=== PATIENT | male | born 1990 | race Caucasian/White ===

== ENCOUNTER 2023-06-10 15:28 | Emergency (ER) | payer MEDICAID, SELFPAY ==
[2023-06-10 15:29] VITALS: BP 131/78; PULSE 69; RESP 18; TEMP 37.1; O2SAT 95; BMI 24.4
--- NOTE | 2023-06-10 15:30 | ED_ITS ---
HPI - General Adult General Chief complaint: General Medical Stated complaint: Needs methadone dose Time Seen by Provider: 06/10/23 15:34 Source: patient Mode of arrival: ambulatory Limitations: no limitations History of Present Illness HPI narrative: 32 year old male with pmhx significant for opioid use disorder presents to the ED today requesting methadone dose after missing his dose this morning due to difficulty finding a ride. Admits to receiving 90 mg methadone from [facility] in [place]. States his last dose was either yesterday or the day before however is unsure. Reports chills and anxiety at present. No nausea, vomiting, diarrhea, chest pain, SOB. Denies recent ilicit drug use or etoh consumption. Denies SI/HI. Currently resides at a sober house. Related Data Allergies Allergy/AdvReac Type Severity Reaction Status Date / Time No Known Allergies Allergy Verified 06/10/23 15:34 Review of Systems Review of Systems: Constitutional: No fever, +chills, No fatigue, night sweats, weight changes ENT/Mouth: No ear pain, hearing loss, nasal congestion, sinus pain, rhinorrhea, sore throat Eyes: No eye pain, swelling, redness, vision changes, discharge Cardio: No chest pain, palpitations, ESPINOZA, orthopnea, peripheral edema Pulm: No SOB, cough, sputum, wheezing, dyspnea, hemoptysis GI: No nausea, vomiting, hematemesis, abdominal pain, diarrhea, constipation, hematochezia, melena : No irregular bleeding, dysuria, frequency, urgency, hesitancy, hematuria, flank pain, urinary flow changes, urinary incontinence or retention MSK: No back pain, neck pain, joint pain, myalgias Skin: No lesions, rashes Neuro: No weakness, numbness, paresthesias, LOC, dizziness, headache Psych: +anxiety All other systems reviewed and are negative. [facility] Past Medical History Attestation statement: The following information was validated with the patient. Source: old records reviewed and nursing notes reviewed Physical Exam ED Vital Signs: Vital Signs - 24 hr 06/10/23 15:29 Temperature 98.8 F Pulse Rate 69 Respiratory Rate 18 Blood Pressure 131/78 Pulse Oximetry 95 Oxygen Delivery Method Room Air BMI result Body Mass Index 24.4 Vital signs stable Const Other: + mildly tremulous General: cooperative, comfortable and no acute distress Nutritional Appearance: average body habitus Orientation/consciousness: patient oriented x3 Limitations: no limitations HENMT Head: Yes normal to inspection Eyes General: appearance normal, both eyes and all related structures Conjunctivae: conjunctivae normal Sclerae: sclerae normal Pupils: Equal, round and reactive pupils present Neck Neck: Yes normal visual inspection Resp Effort & Inspection: normal respiratory effort Auscultation: clear to auscultation bilaterally Cardio Rate: regular rate Rhythm: regular rhythm Skin General skin exam: no rashes or lesions noted Neuro General: patient oriented x3 and gait normal Cranial nerves: Yes Equal, round and reactive pupils present Gait exam (Neuro): Normal gait present Motor exam (neuro): no asterixis and Motor fasciculations not present Course Course Course Narrative: 601 -- RN Mary spoke with [facility] confirming methadone dose of 90 mg. Last dose was on the (2 days ago) at 1753. Plan for administration of methadone and discharge. Medications Administered Discontinued Medications Generic Name Dose Route Start Last Admin Trade Name Freq PRN Reason Stop Dose Admin Methadone HCl 90 mg 06/10/23 15:44 06/10/23 15:55 Methadone Hcl 20 Mg/2 Ml Oral.Conc PO 06/10/23 15:45 90 mg ONCE ONE Administration Medical Decision Making Medical Decision Making [facility] Narrative: 32 year old male with pmhx significant for opioid use disorder presents to the ED today requesting methadone dose after missing his dose this morning due to difficulty finding a ride. Vital signs are stable. Patient is nontoxic- appearing and in no acute distress. Mildly tremulous on exam. No focal neuro deficits. No asterixis or tongue fasiculations. Lungs CTA b/l. Skin warm, no rashes or lesions. Ambulating with steady gait. No concern for acute opioid withdrawal. Will plan for methadone dose confirmation and administration. Differential Diagnosis Differential Diagnoses: The differential diagnosis associated with the presentation includes as above. Admission/Observation not indicated. Independent Historian Clinical information obtained from an independent historian. History obtained from or confirmed by: Other ([facility]) Chronic Conditions Patient?s care impacted by: Other (opioid use disorder) Social Determinants Patient?s care significantly limited by Social Determinants of Health including: Other Social Determinant of Health Discharge Plan Discharge Clinical Impression: Methadone dependence Patient Disposition: Home, Self-Care Instructions: Methadone (By mouth) Additional Instructions: You were dosed with 90mg methadone in ED today. For future doses, make sure that you are arriving to your appointment at [facility] in [place] on time. Do not miss any doses. If you happen to miss a dose in the future, return to emergency department. In the case of an emergency call 911.
--- NOTE | 2023-06-10 15:49 | PC.NURSE ---
[facility] called and verified Methadone dose of 90mg last dosed on 06/08/23. Verification form faxed to pharm at this time to dose and d/c from triage
[2023-06-10] MEDS: methADONE HCl 20 MG/2 ML ORAL.CONC 90 MG PO (15:55)
--- NOTE | 2023-06-12 09:20 | HE.PHANOTE ---
re methadone verification last dose 90 mg given 06/08/23 @ N
== END 2023-06-10 16:02 | disposition home or self-care (01) ==
LOC: HO.ED 16:00
PROVIDERS: Emergency Provider Emergency Medicine
DX: F11.20 Opioid dependence, uncomplicated (principal); F41.9 Anxiety disorder, unspecified
CPT/HCPCS: 99282; 99283

== ENCOUNTER 2023-06-11 11:25 | Emergency (ER) | payer MEDICAID, SELFPAY ==
[2023-06-11 11:38] VITALS: BP 158/74; PULSE 61; RESP 18; TEMP 37; O2SAT 96; BMI 26.1
--- NOTE | 2023-06-11 11:42 | ED_ITS ---
HPI - General Adult General Chief complaint: General Medical Stated complaint: Methadone dose Time Seen by Provider: 06/11/23 11:40 Source: patient Mode of arrival: ambulatory Limitations: no limitations History of Present Illness HPI narrative: 32 yold male presents to the ED for his methadone dose of 90mg. Rylee states his clinic is closed for the weekend and they informed him to return to the ED. patient missed his Doctors appointment last week so he will have to follow up with his PCP this week at methadone clinic to contunie his methadone. Patient denies any physical complaints Related Data Allergies Allergy/AdvReac Type Severity Reaction Status Date / Time bee pollen [bee stings] Allergy Unknown Verified 06/11/23 11:41 Review of Systems Review of Systems: wants mehtaonde dose Yes all other systems are reviewed and are negative [facility] Social History Social History Advance Directives: No Physical Exam ED Vital Signs: Vital Signs - 24 hr 06/11/23 11:38 Temperature 98.6 F Pulse Rate 61 Respiratory Rate 18 Blood Pressure 158/74 H Pulse Oximetry 96 Oxygen Delivery Method Room Air BMI result Body Mass Index 26.1 Const General: cooperative, healthy appearing, comfortable, no acute distress, well developed, alert, awake and Physically active Orientation/consciousness: oriented to person, oriented to place, oriented to time and patient oriented x3 HENMT Head: Yes normal to inspection, Yes No palpable skull fracture present, Yes normocephalic and Yes atraumatic Eyes General: appearance normal, both eyes and all related structures Neck Neck: Yes normal visual inspection, Yes full ROM, Yes no lymphadenopathy, Yes no meningeal signs, Yes trachea midline, Yes supple, No anterior neck swelling and No tender Chest Chest palpation & inspection: normal inspection of the chest and normal palpation of entire chest wall Resp Effort & Inspection: normal respiratory effort and able to speak in complete sentences Auscultation: clear to auscultation bilaterally Cardio Jugular venous distension: no JVD Heart sounds: S1 normal heart sound present and S2 normal heart sound present GI Inspection: Yes normal to inspection Palpation (GI): Soft to palpation, not firm, nontender, no guarding and not rigid General: Yes no CVA tenderness Back/Spine/Pelvis Back: no CVA tenderness and No back tenderness Skin General skin exam: no rashes or lesions noted and elasticity normal Neuro General: oriented to person, oriented to place, oriented to time, patient oriented x3, gait normal, tone normal, moves all extremities, Normal light touch and pain sensation, no meningeal signs, no focal motor deficits, CN's II-XI intact bilaterally and normal sensation to monofilament Extrem General: Yes normal to inspection and Yes full ROM Psych Appearance: grossly normal, well kempt and not disheveled Course Course Course Narrative: RME: 32 yold male presents to the ED for mehtadone dose of 90mg. Patient's clinic is closed and has to follow up with [facility] PCP this week to continue. Patient was informed to come to the ED for methadone. patient will be given methadone 90mg today. patient given methaonde yesterday. Medications Administered Discontinued Medications Generic Name Dose Route Start Last Admin Trade Name Cesar PRN Reason Stop Dose Admin Methadone HCl 90 mg 06/11/23 11:44 06/11/23 11:50 Methadone Hcl 20 Mg/2 Ml Oral.Conc PO 06/11/23 11:45 90 mg ONCE ONE Administration Medical Decision Making Medical Decision Making [facility] Narrative: 32 yold male presents to ED for methadone. Patient's [facility] clinic closed today. Also patient missed appointment with his primary care provider so he will have to follow-up with his primary care provider this week to continue methadone. Patient was informed by [facility] to come to the ED to get his methadone dose. Differential Diagnosis Differential Diagnoses: The differential diagnosis associated with the presentation includes Discharge Plan Discharge Clinical Impression: Medication refill Patient Disposition: Home, Self-Care Instructions: Medicine Refill (ED) Additional Instructions: Recommend follow-up with primary care provider at methadone clinic. Return to the ED for any physical complaints or any other concerning symptoms. Interventions: ED Discharge Assessment Last Done: 06/11/23 11:58 Discharge Date/Time: 06/11/23 11:59 Print Language: Tristanian
[2023-06-11] MEDS: methADONE HCl 20 MG/2 ML ORAL.CONC 90 MG PO (11:50)
== END 2023-06-11 11:59 | disposition home or self-care (01) ==
PROVIDERS: Emergency Provider Emergency Medicine
DX: Z76.0 Encounter for issue of repeat prescription (principal)
CPT/HCPCS: 99282; 99283

== ENCOUNTER 2023-06-12 19:05 | Emergency (ER) | payer MEDICAID, SELFPAY ==
[2023-06-12 19:33] VITALS: BP 157/89; PULSE 81; RESP 16; TEMP 37; O2SAT 96; BMI 24.4
--- NOTE | 2023-06-12 19:33 | ED.GENADULT ---
HPI - General Adult General Chief complaint: General Medical Stated complaint: missed methadone dose today Time Seen by Provider: 06/12/23 19:35 Source: patient Mode of arrival: ambulatory Limitations: no limitations History of Present Illness HPI narrative: 32 year old male with pmhx significant for opiate use disorder on methadone presents to the emergency department today requesting methadone dose. He typically doses at [facility]. States that he has had issues getting his methadone dose after he missed a doctor's appointment last week. States that he will be following up with a new clinic tomorrow morning. Admits to missing his methadone dose today as he was trying to tough it out at home until tomorrow morning. He was [place] [facility] [place] the last 2 days with a dose of 90 mg. Denies ilicit substance use or etoh constumption. Denies any physical complaints. Related Data Home Medications Medication Instructions Recorded Confirmed methadone 10 mg/mL oral 90 mg PO DAILY 06/12/23 06/12/23 concentrate (Methadone Intensol) Allergies Allergy/AdvReac Type Severity Reaction Status Date / Time bee pollen [bee stings] Allergy Unknown Verified 06/12/23 19:33 Review of Systems Review of Systems: Constitutional: No fever, chills, fatigue, night sweats, weight changes ENT/Mouth: No ear pain, hearing loss, nasal congestion, sinus pain, rhinorrhea, sore throat Eyes: No eye pain, swelling, redness, vision changes, discharge Cardio: No chest pain, palpitations, ESPINOZA, orthopnea, peripheral edema Pulm: No SOB, cough, sputum, wheezing, dyspnea, hemoptysis GI: No nausea, vomiting, hematemesis, abdominal pain, diarrhea, constipation, hematochezia, melena : No irregular bleeding, dysuria, frequency, urgency, hesitancy, hematuria, flank pain, urinary flow changes, urinary incontinence or retention MSK: No back pain, neck pain, joint pain, myalgias Skin: No lesions, rashes Neuro: No weakness, numbness, paresthesias, LOC, dizziness, headache All other systems reviewed and are negative. [facility] Past Medical History Attestation statement: The following information was validated with the patient. Source: old records reviewed and nursing notes reviewed Social History Social History Advance Directives: No Advance Directives Information Provided: No Physical Exam ED Vital Signs: Vital Signs - 24 hr 06/12/23 19:33 Temperature 98.6 F Pulse Rate 81 Respiratory Rate 16 Blood Pressure 157/89 H Pulse Oximetry 96 Oxygen Delivery Method Room Air BMI result Body Mass Index 24.4 Vital signs notable for hypertension, otherwise WNL. Const General: cooperative, healthy appearing, comfortable and no acute distress Orientation/consciousness: patient oriented x3 Limitations: no limitations HENMT Head: Yes normal to inspection Eyes General: appearance normal, both eyes and all related structures Conjunctivae: conjunctivae normal Sclerae: sclerae normal Pupils: Equal, round and reactive pupils present Neck Neck: Yes normal visual inspection Resp Effort & Inspection: normal respiratory effort Auscultation: clear to auscultation bilaterally Cardio Rate: regular rate Rhythm: regular rhythm Skin General skin exam: no rashes or lesions noted Neuro General: patient oriented x3 and gait normal Cranial nerves: Yes Equal, round and reactive pupils present Course Course Course Narrative: Methadone dose of 90 mg confirmed. Patient will receive methadone dose in ED and be discharged. Medications Administered Discontinued Medications Generic Name Dose Route Start Last Admin Trade Name Cesar PRN Reason Stop Dose Admin Methadone HCl 90 mg 06/12/23 19:34 06/12/23 19:53 Methadone Hcl 20 Mg/2 Ml Oral.Conc PO 06/12/23 19:35 90 mg ONCE ONE Administration Medical Decision Making Medical Decision Making [facility] Narrative: 32 year old male with pmhx significant for opiate use disorder on methadone presents to the emergency department today requesting methadone dose. VSS. Patient is AOX3. Acting appropriately. Physical exam is unremarkable. Will plan for methadone dose and discharge. Differential Diagnosis Differential Diagnoses: The differential diagnosis associated with the presentation includes opioid use disorder, methadone dependence Admission/Observation not indicated. Prescription Management I considered prescription management with: Pain Medication Chronic Conditions Patient?s care impacted by: Other (opioid use disorder, methadone dependence ) Social Determinants Patient?s care significantly limited by Social Determinants of Health including: Other Social Determinant of Health Critical Care Time Critical Care Time Critical Care Time: No Discharge Plan Discharge Clinical Impression: Medicine refill, Methadone dependence Patient Disposition: Home, Self-Care Instructions: Methadone (By mouth), Medicine Refill (ED) Additional Instructions: You were dosed with 90 mg methadone in ED today. For future doses, make sure that you are arriving to your appointment at [facility] in [place] on time. If you are switching clinics, please make sure that you follow up with them tomorrow morning for your methadone. If you happen to miss a dose in the future, return to emergency department. In the case of an emergency call 911. Prescriptions: No Action methadone [Methadone Intensol] 10 mg/mL Concentrate 90 mg PO DAILY Interventions: ED Discharge Assessment Last Done: 06/12/23 19:57 Discharge Date/Time: 06/12/23 19:57
[2023-06-12] MEDS: methADONE HCl 20 MG/2 ML ORAL.CONC 90 MG PO (19:53)
== END 2023-06-12 19:57 | disposition home or self-care (01) ==
PROVIDERS: Emergency Provider Internal Medicine
DX: F11.20 Opioid dependence, uncomplicated (principal); Z76.0 Encounter for issue of repeat prescription
CPT/HCPCS: 99282; 99283

== ENCOUNTER 2024-10-18 19:04 | Emergency (ER) | payer MEDICAID, SELFPAY ==
[2024-10-18 19:21] VITALS: BP 139/78; PULSE 81; RESP 16; TEMP 36.6; O2SAT 94; BMI 22.7
--- NOTE | 2024-10-18 19:36 | ECG_ITS ---
Test Reason : MED CLEARANCE Blood Pressure : */* mmHG Vent. Rate : 83 BPM Atrial Rate : 83 BPM P-R Int : 128 ms QRS Dur : 90 ms QT Int : 416 ms P-R-T Axes : 42 39 17 degrees QTcB Int : 488 ms Normal sinus rhythm Prolonged QT Abnormal ECG No previous ECGs available Referred By: Daly Christianson Electronically Signed By: JOSHUA TORRES
--- NOTE | 2024-10-18 19:43 | PC.NURSE ---
Patient not found in [facility] or directly outside, called patient's phone, number disconnected. Called patient's contact Navya, patient currently in parking lot will return.
--- NOTE | 2024-10-18 19:58 | ED.MEDCLEAR ---
HPI - Medical Clearance General Chief complaint: Medical Clearance Stated complaint: wants an EKG Time Seen by Provider: 10/18/24 19:43 Source: patient and family Mode of arrival: ambulatory Limitations: no limitations History of Present Illness ED Provider: NEGIN ANDINO PA-C HPI Narrative: 33 year old male with pmhx significant for polysubstance abuse presents to the ED today requesting EKG for medical clearance. Patient reports speaking with [facility] who have a bed available for him. They requested he come to the ED for EKG as he is on methadone. Reports taking 150mg methadone daily. He is dosed at a clinic in [place]. He was last dosed this morning. He admits to injecting crack cocaine. Last injected today. Denies other illicit substance use. Denies etoh consumption. Denies any physical complaints at present. Denies SI/HI. He presents with his grandmother who will be driving him to the recovery center. Related Information Home Medications ?Medication ?Instructions ?Recorded ?Confirmed methadone 10 mg/mL oral 90 mg PO DAILY 06/12/23 06/12/23 concentrate (Methadone Intensol) Allergies Allergy/AdvReac Type Severity Reaction Status Date / Time bee pollen [bee stings] Allergy Unknown Verified 10/18/24 19:23 Review of Systems Review of Systems: Constitutional: No fever, chills, fatigue, night sweats, weight changes ENT/Mouth: No ear pain, hearing loss, nasal congestion, sinus pain, rhinorrhea, sore throat Eyes: No eye pain, swelling, redness, vision changes, discharge Cardio: No chest pain, palpitations, ESPINOZA, orthopnea, peripheral edema Pulm: No SOB, cough, sputum, wheezing, dyspnea, hemoptysis GI: No nausea, vomiting, hematemesis, abdominal pain, diarrhea, constipation, hematochezia, melena : No irregular bleeding, dysuria, frequency, urgency, hesitancy, hematuria, flank pain, urinary flow changes, urinary incontinence or retention MSK: No back pain, neck pain, joint pain, myalgias Skin: No lesions, rashes Neuro: No weakness, numbness, paresthesias, LOC, dizziness, headache Psych: No anxiety/panic, depression, SI/HI, AH/VH All other systems reviewed and are negative. [facility] Past Medical History Attestation statement: The following information was validated with the patient. Source: old records reviewed and nursing notes reviewed Social History Social History Advance Directives: No Advance Directives Information Provided: No Do you have a plan to hurt others: No Plan Physical Exam Vital Signs: Vital Signs: Last Vital Signs Temp 97.8 F 10/18/24 20:13 Pulse 81 10/18/24 20:13 Resp 16 10/18/24 20:13 BP 139/78 10/18/24 20:13 Pulse Ox 94 10/18/24 20:13 O2 Del Method Room Air 10/18/24 20:13 BMI result Body Mass Index 22.7 vital signs stable General: Well appearing, in no acute distress. Skin: Warm, dry, intact. No rashes or lesions. Head: Normocephalic, atraumatic. EENT: Hearing is intact b/l. Conjunctiva clear. Sclera is anicteric. PERRLA. EOM intact. Moist mucous membranes.? Cardiac: Chest wall symmetric. RRR Lungs: Normal respiratory effort without accessory muscle use. CTA bilaterally Back: No midline spinous or paraspinal tenderness. No step off deformity. Ext: Upper and lower extremities atraumatic, without tenderness, deformity, swelling or erythema Neuro: AOx3. Normal speech. CN 2-12 grossly intact. Ambulating with steady gait. Psych: Appropriate mood and affect. Responds appropriately to questions. Course Course Course Narrative: EKG showing normal sinus rhythm, rate of 83 beats per minute, QT 416, QTC 488, no acute ischemic changes or ST elevations. > patient is on methadone. No physical complaints. He is medically cleared for recovery at this time. copy of EKG provided w/ discharge paperwork. Patient has remained stable throughout ED visit today. Discussed worrisome signs and symptoms and when to return to the ED. All questions answered at this time. Patient is agreeable with disposition and stable for discharge. Medical Decision Making Medical Decision Making MDM Narrative: 33 year old male with pmhx significant for polysubstance abuse presents to the ED today requesting EKG for medical clearance. Vital signs stable. He is nontoxic appearing in no acute distress. Physical exam is unremarkable. Plan for EKG to assess for prolonged QT and disposition. Differential Diagnosis Differential Diagnoses: The differential diagnosis associated with the presentation includes as above. Admission/Observation not indicated. Independent Interpretation I performed an independent interpretation of an: EKG Interpretation: EKG showing normal sinus rhythm, QT prolonged at 4:16 a.m., no acute ischemic changes or ST elevation Radiology Impression Discussion of test interpretation with radiology: I have reviewed the radiologist's reading. Independent Historian Clinical information obtained from an independent historian. History obtained from or confirmed by: Other (grandmother) Chronic Conditions Patient?s care impacted by: Other (Polysubstance abuse, methadone dependence) Social Determinants Patient?s care significantly limited by Social Determinants of Health including: Other Social Determinant of Health Critical Care Time Critical Care Time Critical Care Time: No Discharge Plan Discharge Clinical Impression: Encounter for medical clearance for patient hold Patient Disposition: Home, Self-Care Instructions: Medical Clearance for Psychiatric Care (ED) Additional Instructions: You were seen in the ED for EKG for medical clearance. Your EKG has prolonged QT at 416 which is expected for someone on methadone. EKG is otherwise normal. You have been cleared for recovery. Return with new or worsening symptoms. In the case of an emergency call 911. Prescriptions: No Action methadone [Methadone Intensol] 10 mg/mL Concentrate 90 mg PO DAILY Referrals: [facility] [place] [place] [facility] [Provider Group] Interventions: ED Discharge Assessment Last Done: 10/18/24 20:13 Discharge Date/Time: 10/18/24 20:14 Print Language: New Zealander
[2024-10-18 20:13] VITALS: BP 139/78; PULSE 81; RESP 16; TEMP 36.6; O2SAT 94
== END 2024-10-18 20:14 | disposition home or self-care (01) ==
PROVIDERS: Emergency Provider Emergency Medicine
DX: F14.10 Cocaine abuse, uncomplicated (principal); R94.31 Abnormal electrocardiogram [ECG] [EKG]; Z79.891 Long term (current) use of opiate analgesic; Z79.899 Other long term (current) drug therapy
CPT/HCPCS: 93005; 99282; 99283

== ENCOUNTER → 2024-10-18 19:36 | Outpatient (BNV) | payer MEDICAID, SELFPAY | PROVIDERS: Emergency Provider Emergency Medicine; Visit Provider Internal Medicine | DX: R94.31 Abnormal electrocardiogram [ECG] [EKG] (principal); Z13.6 Encounter for screening for cardiovascular disorders | CPT/HCPCS: 93010 ==